=== PATIENT | female | born 1990 | race Caucasian/White ===

== ENCOUNTER → 2017-05-14 | Outpatient (CLI) | payer OTHER ==
[~2017-05-14] MED LIST: MIRENA52 MG IU
== END ==
LOC: LAB 14:55
DX: Z34.80 Encounter for supervision of other normal pregnancy, unspecified trimester (principal)

== ENCOUNTER → 2017-06-29 | Outpatient (CLI) | payer OTHER | LOC: LAB 13:08 | DX: Z34.80 Encounter for supervision of other normal pregnancy, unspecified trimester (principal) ==

== ENCOUNTER → 2017-07-08 | Outpatient (CLI) | payer OTHER ==
[2017-07-08 13:35] LABS: LYMPH # 1.7 K/mm3 (0.7-4.5); LYMPH % 14.8 % (10-50.0)
[2017-07-08 13:59] LABS: HEMOGLOBIN 13.2 g/dL (12.2-16.2)
[2017-07-08 18:51] LABS: ABO BLOOD TYPE A; RH BLOOD TYPE POSITIVE
[2017-07-09 04:39] LABS: HBsAg Screen Negative (Negative); HIV Screen 4th Generation wRfx Non Reactive (Non Reactive); Hep C Virus Ab <0.1 (0.0-0.9)
[2017-07-09 06:42] LABS: Rapid Plasma Reagin, Quant Non Reactive (NonRea<1:1)
[2017-07-09 08:55] LABS: Rubella Antibodies, IgG 1.31 index (Immune >0.99)
== END ==
LOC: LAB 12:02
PROVIDERS: Nurse Practitioner Obstetrics & Gynecology
DX: Z34.80 Encounter for supervision of other normal pregnancy, unspecified trimester (principal)
CPT/HCPCS: G0432

== ENCOUNTER → 2017-07-14 | Outpatient (CLI) | payer OTHER ==
--- NOTE | 2017-07-14 19:33 | RADIOLOGY REPORT PS360 ---
US TRANSVAGINAL PREG HISTORY: Gestational age evaluation DATES ORDERING PHYSICIAN: Juan Manuel Lunsford MD PATIENT AGE: 26 years COMPARISON: None FINDINGS: An intrauterine gestational sac is present with a pole with a crown-rump length of 5.28cm correlating to gestational age of 12 weeks 0 days. heart tones are present with an FHR of 151 bpm's. movement is present. Adnexa are unremarkable. IMPRESSION live IUP at 12 weeks 0 days
== END ==
LOC: RAD 12:40
DX: O26.841 Uterine size-date discrepancy, first trimester (principal)